=== PATIENT | female | born 1940 | race Caucasian/White ===

== ENCOUNTER 2021-04-29 16:30 | Emergency (ER) | payer OTHER ==
[~2021-04-29] VITALS: Ht 162.6 cm; Wt 77.1 kg
== END 2021-04-29 17:43 | disposition home or self-care (01) ==
LOC: ER 17:36
DX: U07.1 COVID-19 (principal); R06.02 Shortness of breath; R05.9 Cough, unspecified; I10 Essential (primary) hypertension; E78.5 Hyperlipidemia, unspecified; F32.A Depression, unspecified
CPT/HCPCS: 99282